=== PATIENT | female | born 1945 | race Caucasian/White ===

== ENCOUNTER 2021-10-20 08:36 | Outpatient (CLI) | payer MEDICARE, SELFPAY ==
[2021-10-20 10:20] LABS: Albumin* 4.1 g/dL (3.3-5.0); Chloride* 101 mmol/L (96-114)
[2021-10-20 10:21] LABS: Potassium* 4.5 mmol/L (3.6-5.1); Sodium* 133 mmol/L (135-149)
[2021-10-20 10:23] LABS: Alkaline Phosphatase* 50 U/L (40-150); Aspartate Amino Transferase* 32 U/L (12-35); Bilirubin Total* 0.4 mg/dL (0.1-1.5); Blood Urea Nitrogen* 18 mg/dL (7-30); Carbon Dioxide* 29 mmol/L (20-32); Cholesterol* 229 mg/dL (90-199); Creatinine* 0.8 mg/dL (0.5-1.5); Estimated Glomerular Filt Rate 76 ml/min; Glucose* 105 mg/dL (60-115); Total Protein* 7.2 g/dL (6.0-8.3); Triglycerides* 79 mg/dL (40-149)
[2021-10-20 10:24] LABS: Alanine Aminotransferase* 17 U/L (4-35); Calcium* 8.7 mg/dL (8.4-10.6); HDL Cholesterol* 81 mg/dL (>=50); LDL Cholesterol Calculated 132 mg/dL (<100)
[2021-10-20 10:37] LABS: Vitamin D 25 Hydroxy* 46 ng/mL (30-80)
== END 2021-10-20 08:37 | disposition home or self-care (01) ==
LOC: NFLDREF 08:37
PROVIDERS: PCP Family Medicine; Visit Provider Family Medicine
DX: Z00.00 Encounter for general adult medical examination without abnormal findings (principal); E78.5 Hyperlipidemia, unspecified; M85.80 Other specified disorders of bone density and structure, unspecified site
CPT/HCPCS: 80053; 80061; 82306

== ENCOUNTER 2021-11-09 15:27 | Outpatient (CLI) | payer MEDICARE, SELFPAY ==
--- NOTE | 2021-11-09 15:30 | CRLHL7_ITS ---
For Patients: As a result of the Century Cures Act, medical imaging exams and procedure reports are released immediately into your electronic medical record. You may view this report before your referring provider. If you have questions, please contact your health care provider. DXA BONE MINERAL DENSITY STUDY Current height (in): 62. Weight (lb): 119. Menopause age: 45. Ethnicity: White. 1. Have you had a previous hip or vertebral fracture? Yes. 2. Have you had any fractures during your adult life which did not result from significant trauma (e.g., auto accident)? Yes. 3. Did either of your parents have a hip fracture? Yes. 4. Do you smoke? No. 5. Have you ever taken Glucocorticoids? No. 6. Do you have rheumatoid arthritis? No. 7. Do you have secondary osteoporosis? No. 8. Do you drink 3 or more alcoholic drinks per day? No. 9. Are you being treated for osteoporosis? No. 10. Have you ever taken any of the following medications: Actonel, Evista, Fosamax, Miacalcin, Reclast, Boniva, Forteo, HRT (i.e. estrogen/hormone therapy), Protelos, Prolia, Vitamin D, Calcium, other ??? please specify. ANSWER: Yes, vitamin D, calcium. 11. Do you have any of the following medical conditions: Anorexia or bulimia, asthma or emphysema, end stage renal disease, hyperparathyroidism, any seizure disorders, cancer, inflammatory bowel diseases, hysterectomy, other ??? please specify. ANSWER: Yes, hysterectomy. 12. What was your maximum height (inches)? 63. 13. Do you perform weight bearing exercise regularly? Yes. 14. Do you regularly consume dairy products? Yes. 15. Do you drink caffeinated beverages? No. 16. At what age did your period start? 13. 17. Are you premenopausal? No. 18. How many full term pregnancies have you had? 3. 19. Have you ever missed your period for more than 6 months in a row (not including or menopause)? No. TECHNIQUE: Bone mineral density study was performed using the [employer]. FINDINGS: The results of the study expressed as bone mineral density (BMD) are as follows: Lumbar spine L2 to L4: BMD: 0.949 g/cm2. T-score: -1.2. Z-score: 1.4. Neck Left: BMD: 0.696 g/cm2. T-score: -1.4. Z-score: 0.8. Right: BMD: 0.645 g/cm2. T-score: -1.8. Z-score: 0.3. Total Left: BMD: 0.883 g/cm2. T-score: -0.5. Z-score: 1.4. Right: BMD: 0.883 g/cm2. T-score: -0.5. Z-score: 1.4. IMPRESSION: Osteopenia. Bryn Morocho M.D. Diagnostic Radiologist [email or web address] ELIZ/Dictated by: Bryn Morocho MD @ 11/10/2021 9:01:00 AM (Electronically Signed)
== END 2021-11-09 15:28 | disposition home or self-care (01) ==
LOC: RAD 15:29
PROVIDERS: PCP Family Medicine; Visit Provider Family Medicine
DX: M85.80 Other specified disorders of bone density and structure, unspecified site (principal); M85.89 Other specified disorders of bone density and structure, multiple sites
CPT/HCPCS: 77080

== ENCOUNTER 2022-11-01 14:45 | Outpatient (CLI) | payer OTHER, SELFPAY ==
--- OUTSIDE RECORDS SUMMARY | 2022-11-01 14:51 | XMS_ITS | Continuity of Care Document ---
Author Name [facility] [place] [facility] Care Team Providers Care Oracle Iam Consultant Name Role Phone [facility] [employer] [facility] Unavailable Unavailable Consultation Notes Results Value Date Source ED Physician Notes Patient: FADIA LECHUGA (EV) Age: 70 years Sex: F : 45 Associated Diagnoses: None Author: Katrin Hammond Basic Information Time seen: Provider Initial Contact Time 03/08/2016 12:24. History source: Patient. Arrival mode: Private vehicle. History limitation: None. Additional information: Chief Complaint (ST) Chief Complaint ED: swollen glands 03/08/16 11:57, ED Triage Assessment: c/o swollen glands to both sides of neck since last night; denies any associated pain or fever. 03/08/16 11:57 . History of Present Illness The patient presents with swollen lymph nodes in neck. The onset was 18 hours ago. The course/duration of symptoms is improving. Location: Bilateral neck. The character of symptoms is swelling, not numbness, not redness and no bleeding. The degree at present is minimal. Risk factors consist of none. Therapy today: none. Associated symptoms: none. Additional history: 70 y/o female reports sudden onset of swollen glands in her neck last night, they were worse initially, slightly better now. Denies pain, feels the swelling present when she turns her head. no fever, chills, night sweats, sore throat, cold cough congestion, rash. no known exposures, recent vacciantions, dental problems. NO hx of same.. no PCP locally.. Review of Systems Additional review of systems information: All other systems reviewed and otherwise negative. Health Status Allergies: Allergic Reactions (Selected) No Known Medication Allergies. Medications: Include Documented Meds (Selected) Documented Medications Documented estropipate 0.75 mg oral tablet: 1 Tab, PO, qDay, 30 Tab, 0 Refill(s). Immunizations: Per nurse's notes. Past Medical/ Family/ Social History Medical history: All Problems High cholesterol / [id number] / Confirmed. Surgical history: CS - section ([id number]). Hysterectomy ([id number]).. Family history: Not significant. Social history: Social and Psychosocial Habits Alcohol 03/08/2016 Use: Current Type: Wine Frequency: 1-2 times per month Home/Environment 03/08/2016 Gnosticist restrictions/concerns: None Substance Abuse 03/08/2016 Use: Unknown substance abuse h Tobacco 03/08/2016 Use: Never used tobacco Type: Never used tobacco , Occupation: Retired, Family/social situation: Intact family. Physical Examination Vital Signs Vital-Signs 03/08/16 11:57 MST Oxygen Amount Room air SPO2 98 % Normal Heart Rate 64 bpm Normal NIBP Diastolic 68 mm Hg Normal NIBP Systolic 107 mm Hg Normal Resp Rate (Monitor) 16 Breaths/Min Normal Temperature Temporal Artery 36.1 deg C L Pain Intensity 0 Pain Scale Used Numeric Rating Scale . Measurements 03/08/16 11:57 MST Drug Calc Weight (kg) 55.455 kg BMI 22.36 Height 157.48 cm Normal . SPO2 03/08/16 11:57 MST SPO2 98 % Normal . General: Alert, no acute distress. Skin: Warm, dry, pink, intact. Ears, nose, mouth and throat: Tympanic membranes clear, oral mucosa moist, no pharyngeal erythema or exudate. Neck: Supple, mild ant cerv / adenopathy, nontender, symmetric. Cardiovascular: Regular rate and rhythm. Respiratory: Lungs are clear to auscultation. Neurological: Alert and oriented to person, place, time, and situation. Psychiatric: Cooperative. Medical Decision Making Differential Diagnosis: Viral syndrome, lymphadenitis. Rationale: concern with sudden onset, veronica recommend recheck with PCP or ENT if persists > 10 days, as this is symmetric , salivary gland issue seems unlikely, possible unknown dental issue, possible early viral syndrome, will provide RX antibiotic if symptoms worsen she may start, she voiced understanding and agreement with plan . Impression and Plan Lymphadenitis ([id number]-OX I88.9, Discharge, Medical) Plan Condition: Stable. Disposition: Discharged: Time 03/08/16 12:48:00, to home. Prescriptions: [facility] Pharm[facility]: Augmentin 875 mg oral tablet (Prescribe): 1 Tab, PO, every 12 hours, for 7 Day, 14 Tab, 0 Refill(s). Patient was given the following educational materials: Lymphadenopathy. Follow up with: Follow up with your usual provider Within 1 week, only if needed. Counseled: Patient, Regarding diagnosis, Regarding treatment plan, Regarding prescription, Patient indicated understanding of instructions. Orders: Launch Orders Admit/Transfer/Discharge: Discharge (Order Processing): 03/08/16 12:49 MST, Now, Home or self care. Electronically Signed By: Katrin Hammond On 03/08/16 12:49 Co Signature By: Ang Carias DO On 03/12/16 17:20 Modify Signature By: 03/08/2016 [facility] [place] [facility]
--- OUTSIDE RECORDS SUMMARY | 2022-11-01 14:51 | XMS_ITS | Continuity of Care Document ---
Author Name Unknown Organization [facility] Address [address] [id number] Phone Care Team Providers Care Streetcar Starter Name Role Phone Unavailable Unavailable Unavailable Advance Directives Directive Yes / No Effective Date File Name No Information Encounters Encounter Description Practice Location Reason(s) For Visit Diagnoses Date Provider Providers Copied on Encounter [facility] [place], [address], , [address], [place] tel:[phone] [facility] No Information [phone] No Information Family History Family Member Type Diagnosis Age At Onset No Information Payers Payer name Insurance type Covered libertarian ID Authoriza tion(s) No Information Social History Type Description Quantity Date Captured Comments Sex Female Smoking Status No Information Chief Complaint And Reason For Visit No Information Reason For Referral Reason For Referral No Information History Of Present Illness Encounter Date Complaint History Of Prese nt Illness No Information Functional Status Date Functional Assessmen t No Information Instructions Date Instruction Additional Infor mation No Information Assessments Type Assessment Date No Information Patient Care Teams Name Effective Dates (start - stop) Status Members No Information
== END 2022-11-01 14:46 | disposition home or self-care (01) ==
PROVIDERS: PCP Family Medicine; Visit Provider Family Medicine
DX: E78.5 Hyperlipidemia, unspecified (principal); R73.01 Impaired fasting glucose; M85.80 Other specified disorders of bone density and structure, unspecified site
CPT/HCPCS: 80061; 82306